=== PATIENT | male | born 1990 | race Caucasian/White ===

== ENCOUNTER 2022-09-03 10:37 | Emergency (ER) | payer MEDICAID, SELFPAY ==
[2022-09-03 10:38] VITALS: BP 117/75; PULSE 70; RESP 16; TEMP 36.7; O2SAT 100; BMI 22.3
--- NOTE | 2022-09-03 10:45 | HMH.EDGENADL ---
Discharge Plan Disposition Patient Disposition: Home, Self-Care Condition: Good Prescriptions Prescriptions: New cephalexin 500 mg capsule 500 mg PO Q6H 5 Days Qty: 20 0RF Referrals Follow up/Referrals: Karen Ross MD [Primary Care Provider] - See instructions Activity Restrictions/Add. Instructions Additional Instructions/Restrictions: At this time is felt you are safe to be discharged home. If new or worsening symptoms please do not hesitate to return the emergency department. Please do not submerge your hand in water. Please follow-up in 10 days with your family doctor for continued evaluation. Please take antibiotics as prescribed. Clinical Impressions Clinical Impression: Laceration of hand Instructions Patient Instructions: DI for Laceration Repair Discharge ED Provider: Victorino Munoz General Adult HPI General Chief complaint: Wound/Laceration Stated complaint: AO 09/03, right hand lac Time Seen by Provider: 09/03/22 10:40 History of Present Illness HPI narrative: Patient is a 32-year-old left-handed male who presents emergency department for evaluation of traumatic injury sustained to his right palm with a chainsaw. History is obtained by patient at bedside he was trimming a tree, gloved when the chainsaw kicked back causing a laceration over his proximal volar palm. Denies other traumatic injuries, denies range of motion abnormalities or significant sensation changes. Tetanus is not up-to-date. No other acute complaints at this time. Related Data Previous Rx's Medication Instructions Recorded cephalexin 500 mg capsule 500 mg PO Q6H 5 days #20 caps 09/03/22 Allergies Allergy/AdvReac Type Severity Reaction Status Date / Time No Known Allergies Allergy Verified 09/03/22 10:[address] [facility] Disclaimer: The information contained in this section may have been updated after the patient was seen, as this information can be updated by other users. Social History Smoking Status: Current every day smoker alcohol intake: never current occupational status: employed Travel in the last 8 weeks: None ROS Obtained: Yes Systems reviewed as appropriate & no additional complaints except as documented Physical Exam General General appearance: alert and in no apparent distress Head Head exam: atraumatic and normocephalic Eye Eye exam: Present PERRL and EOMI ENT ENT exam: Present mucous membranes moist Neck Neck exam: Present normal inspection Chest Chest inspection: Present normal inspection and symmetric chest wall rise Respiratory Respiratory exam: Absent respiratory distress Cardiovascular Cardiovascular exam: Present regular rate, normal rhythm and other (Palpable bilateral radial pulses) Abdominal Exam Abdominal exam: Present soft Extremities Exam Extremities exam: Present full ROM (Right upper extremity full range of motion active and passive at the elbow, wrist, MCP, PIP, DIP joints. Sensation intact to light touch throughout entire volar and dorsal hand), normal capillary refill (All digits) and other (10 cm stellate laceration to the right proximal palm that is hemostatic, 3 cm linear laceration over the thenar eminence, punctate laceration over the volar proximal medial thumb, hemostatic.) Neurological Exam Neurological exam: Present alert and oriented X3 Psychiatric Psychiatric exam: Present normal affect Skin Skin exam: Present warm and dry Medical Decision Making Manuel Inquiry Pt receiving controlled substance: No Vital Signs: 09/03/22 10:38 Temperature 98.1 F Temperature Source Oral Pulse Rate [Left] 70 Respiratory Rate 16 Blood Pressure [Left Arm] 117/75 Blood Pressure Mean [Left Arm] 89 Blood Pressure Source [Left Arm] Automatic Cuff Blood Pressure Position [Left Arm] Sitting 02 Sat by Pulse Oximetry 100 Orders (Tests/Meds): ED MEDICATIONS Discontinued Medications Generic Name Dose Route Start Last Admin Trade Name Pratima
--- NOTE | 2022-09-03 10:51 | PC.NURSE ---
pt hand soaking in hibiclens and saline
--- NOTE | 2022-09-03 10:52 | XR_ITS ---
PROCEDURE INFORMATION: Exam: XR Right Hand Exam date and time: 09/03/2022 10:53 AM Age: 32 years old Clinical indication: Injury or trauma; Other: Chainsaw laceration; Hand; Right; Additional info: Volar proximal palm laceration TECHNIQUE: Imaging protocol: Radiologic exam of the right hand. Views: 1 or 2 views. COMPARISON: No relevant prior studies available. FINDINGS: Bones/joints: Osseous structures are intact. No fracture or malalignment. Visualized joint surfaces are preserved. Soft tissues: Unremarkable. IMPRESSION: Negative exam. No acute bony abnormalities.
--- NOTE | 2022-09-03 11:04 | PC.NURSE ---
pt was given a tdap L deltoid I thought order was already in so i pulled meds order was not in so i was unable to put it in or document anywhere but on the immunization form
--- NOTE | 2022-09-03 13:01 | PC.NURSE ---
ER MD Munoz at
--- NOTE | 2022-09-03 13:22 | PC.NURSE ---
Adaptic, 4x4 dressing, adelaide wrap applied to right hand. Pt tolerated well. Awaiting wrist splint.
--- NOTE | 2022-09-03 13:29 | PC.NURSE ---
Right wrist splint applied. Pt tolerated well.
[2022-09-03 13:35] VITALS: BP 117/75; PULSE 70; RESP 16; TEMP 36.7; O2SAT 100
== END 2022-09-03 13:39 | disposition home or self-care (01) ==
PROVIDERS: Emergency Provider Emergency Medicine; PCP Physical Medicine & Rehabilitation
DX: S61.411A Laceration without foreign body of right hand, initial encounter (principal); W29.3XXA Contact with powered garden and outdoor hand tools and machinery, initial encounter; F17.200 Nicotine dependence, unspecified, uncomplicated
CPT/HCPCS: 73120; 99283